=== PATIENT | male | born 1970 | race Caucasian/White ===

== ENCOUNTER 2017-04-11 14:07 | Emergency (ER) | payer MEDICAID, OTHER ==
[~2017-04-11] VITALS: Ht 175.3 cm; Wt 80.0 kg
[2017-04-11 14:14] VITALS: BP 134/92
[2017-04-11] MEDS ORDERED: AMLO2.5T45 PO (14:16)
[2017-04-11] MEDS ORDERED: LORA2VIA33 IJ (14:16)
[2017-04-11] MEDS ORDERED: ARIP2TAB3 PO (14:16)
== END 2017-04-11 17:07 | disposition left against medical advice (07) ==
LOC: ER 14:07
DX: M54.5 Low back pain (principal); Z53.21 Procedure and treatment not carried out due to patient leaving prior to being seen by health care provider